=== PATIENT | female | born 1995 | race American Indian/Alaskan Native ===

== ENCOUNTER 2018-06-16 10:30 | Emergency (ER) | payer OTHER ==
[2018-06-16 10:43] VITALS: BP 113/67
--- NOTE | 2018-06-16 11:31 | Emergency Department Report ---
Chief Complaint: Dental/Oral Stated Complaint: TOOTHACHE/INFECTION Time Seen by Provider: 06/16/18 11:31 - HPI History of Present Illness: abc intact no abscess or ludwigs MSE COMPLETED - Exam Vital Signs: Vital Signs 06/16/18 10:42 Temperature 98.2 F Pulse Rate 87 Respiratory 18 Rate Blood Pressure 113/67 O2 Sat by Pulse 98 Oximetry MSE screening note: Focused history and physical exam performed. Due to findings the following was ordered: ED Disposition for MSE Condition: Stable
[2018-06-16] MEDS ORDERED: TYLENOL #3 PO ONE (12:09)
--- NOTE | 2018-06-16 12:14 | Emergency Department Report ---
ED ENT HPI - General Chief complaint: Dental/Oral Stated complaint: TOOTHACHE/INFECTION Time Seen by Provider: 06/16/18 11:31 Source: patient Mode of arrival: Ambulatory Limitations: No Limitations - History of Present Illness Initial comments: This is a 22-year-old female nontoxic, well nourished in appearance, no acute signs of distress presents to the ED with c/o of right lower toothache 3 weeks. Patient denies following up with a dentist. Patient stated that pain radiates from his job to his right side of head. Patient otherwise denies any head trauma. Patient describes toothache as aching level of 8 out of 10. Patient denies any facial swelling. Patient denies any numbness, tingling, fever, chills, headache, stiff neck, abdominal pain, chest pain, shortness of breath. Patient denies any drug allergies or significant past medical history. MD complaint: tooth pain -: week(s) (3) Location: tooth # 1 - pain here Severity: mild Severity scale (0 -10): 8 Quality: aching Consistency: constant Improves with: none Worsens with: none Associated Symptoms: gum swelling, toothache. denies: fever, cough, pain with swallowing, sore throat, tinnitus, hearing loss, discharge from ear, rhinorrhea - Related Data Previous Rx's Medication Instructions Recorded Last Taken Type ALBUTEROL Inhaler(NF) [VENTOLIN 2 puff IH Q4-6H PRN #1 inha 01/23/18 Unknown Rx Inhaler(NF)] Azithromycin [Zithromax Z-MALIK] 250 mg PO DAILY #6 tablet 01/23/18 Unknown Rx Prednisone [predniSONE 10 mg 10 mg PO .TAPER #1 tab.ds.pk 01/23/18 Unknown Rx (6-Day Pack, 21 Tabs)] Acetaminophen/Codeine [Tylenol 1 tab PO Q6H PRN #12 tab 06/16/18 Unknown Rx /Codeine # 3 tab] Chlorhexidine Mouthwash [Peridex] 15 ml MM BID #1 bottle 06/16/18 Unknown Rx Clindamycin [Clindamycin CAP] 300 mg PO Q8H #21 cap 06/16/18 Unknown Rx Ibuprofen [Motrin] 600 mg PO Q8H PRN #20 tablet 06/16/18 Unknown Rx Allergies Allergy/AdvReac Type Severity Reaction Status Date / Time No Known Allergies Allergy Unverified 01/23/18 06:04 ED Dental HPI - General Chief complaint: Dental/Oral Stated complaint: TOOTHACHE/INFECTION Time Seen by Provider: 06/16/18 11:31 Source: patient Mode of arrival: Ambulatory Limitations: No Limitations - Related Data Previous Rx's Medication Instructions Recorded Last Taken Type ALBUTEROL Inhaler(NF) [VENTOLIN 2 puff IH Q4-6H PRN #1 inha 01/23/18 Unknown Rx Inhaler(NF)] Azithromycin [Zithromax Z-MALIK] 250 mg PO DAILY #6 tablet 01/23/18 Unknown Rx Prednisone [predniSONE 10 mg 10 mg PO .TAPER #1 tab.ds.pk 01/23/18 Unknown Rx (6-Day Pack, 21 Tabs)] Acetaminophen/Codeine [Tylenol 1 tab PO Q6H PRN #12 tab 06/16/18 Unknown Rx /Codeine # 3 tab] Chlorhexidine Mouthwash [Peridex] 15 ml MM BID #1 bottle 06/16/18 Unknown Rx Clindamycin [Clindamycin CAP] 300 mg PO Q8H #21 cap 06/16/18 Unknown Rx Ibuprofen [Motrin] 600 mg PO Q8H PRN #20 tablet 06/16/18 Unknown Rx Allergies Allergy/AdvReac Type Severity Reaction Status Date / Time No Known Allergies Allergy Unverified 01/23/18 06:04 ED Review of Systems ROS: Stated complaint: TOOTHACHE/INFECTION Other details as noted in HPI Constitutional: denies: chills, fever Eyes: denies: eye pain, eye discharge, vision change ENT: dental pain. denies: ear pain, throat pain Respiratory: denies: cough, shortness of breath, wheezing Cardiovascular: denies: chest pain, palpitations Endocrine: no symptoms reported Gastrointestinal: denies: abdominal pain, nausea, diarrhea Genitourinary: denies: urgency, dysuria, discharge Musculoskeletal: denies: back pain, joint swelling, arthralgia Skin: denies: rash, lesions Neurological: denies: headache, weakness, paresthesias Psychiatric: denies: anxiety, depression Hematological/Lymphatic: denies: easy bleeding, easy bruising ED Past Medical Hx - Past Medical History Previous Medical History?: No - Surgical History Past Surgical History?: No - Social History Smoking Status: Never Smoker Substance Use Type: None - Medications Home Medications: Home Medications Medication Instructions Recorded Confirmed Last Taken Type ALBUTEROL Inhaler(NF) [VENTOLIN 2 puff IH Q4-6H PRN #1 inha 01/23/18 Unknown Rx Inhaler(NF)] Azithromycin [Zithromax Z-MALIK] 250 mg PO DAILY #6 tablet 01/23/18 Unknown Rx Prednisone [predniSONE 10 mg 10 mg PO .TAPER #1 tab.ds.pk 01/23/18 Unknown Rx (6-Day Pack, 21 Tabs)] Acetaminophen/Codeine [Tylenol 1 tab PO Q6H PRN #12 tab 06/16/18 Unknown Rx /Codeine # 3 tab] Chlorhexidine Mouthwash [Peridex] 15 ml MM BID #1 bottle 06/16/18 Unknown Rx Clindamycin [Clindamycin CAP] 300 mg PO Q8H #21 cap 06/16/18 Unknown Rx Ibuprofen [Motrin] 600 mg PO Q8H PRN #20 tablet 06/16/18 Unknown Rx ED Physical Exam - General Limitations: No Limitations General appearance: alert, in no apparent distress - Head Head exam: Present: atraumatic, normocephalic - Expanded ENT Exam Expanded Ear exam: Present: normal external inspection Mouth exam: Present: normal external inspection. Absent: drooling, trismus, muffled voice Teeth exam: Present: dental caries, fractured tooth #, dental tenderness #, gingival enlargement, other (no facial swelling) Throat exam: Positive: normal inspection, other (uvula midline.). Negative: tonsillar erythema, tonsillomegaly, tonsillar exudate, R peritonsillar mass, L peritonsillar mass - Neck Neck exam: Present: normal inspection, full ROM. Absent: tenderness, meningismus, lymphadenopathy - Extremities Exam Extremities exam: Present: normal inspection, full ROM - Back Exam Back exam: Present: normal inspection, full ROM - Neurological Exam Neurological exam: Present: alert, oriented X3 - Psychiatric Psychiatric exam: Present: normal affect, normal mood - Skin Skin exam: Present: warm, dry, intact, normal color. Absent: rash ED Course Vital Signs 06/16/18 10:42 Temperature 98.2 F Pulse Rate 87 Respiratory 18 Rate Blood Pressure 113/67 O2 Sat by Pulse 98 Oximetry - Reevaluation(s) Reevaluation #1: 06/16/18 12:11 Patient is speaking in full sentences with no signs of distress noted. ED Medical Decision Making - Medical Decision Making This is a 22-year-old female that presents with gingivitis and dental caries. Patient is stable and was examined by me. Ophelia nashvd Tylnoel #3 and stated her male friend that is next to patient will drive the patient home after discharge. Patient is discharged with Tylenol #3, Peridex and Clinda. Patient was instructed not to operate any machinery when taking Tylenol #3 due to drowsiness. At time of discharge, the patient does not seem toxic or ill in appearance. No acute signs of distress noted. Patient agrees to discharge treatment plan of care. No further questions noted by the patient. Critical care attestation.: If time is entered above; I have spent that time in minutes in the direct care of this critically ill patient, excluding procedure time. ED Disposition Clinical Impression: Dental caries, Gingivitis Disposition: DC-01 TO HOME OR SELFCARE Is pt being admited?: No Does the pt Need Aspirin: No Condition: Stable Instructions: Dental Caries (ED), Gingivitis (ED), Acetaminophen/Codeine (By mouth) Additional Instructions: Follow-up with a dentist doctor in 3-5 days or if symptoms worsen and continue return to emergency room as soon as possible. Do not operate any machinery while taking Tylenol with codeine as this may cause drowsiness. Prescriptions: Clindamycin [Clindamycin CAP] 300 mg PO Q8H #21 cap Ibuprofen [Motrin] 600 mg PO Q8H PRN #20 tablet PRN Reason: Pain Chlorhexidine Mouthwash [Peridex] 15 ml MM BID #1 bottle Acetaminophen/Codeine [Tylenol /Codeine # 3 tab] 1 tab PO Q6H PRN #12 tab PRN Reason: Pain , Severe (7-10) Referrals: ROHAN MAYNARD [Other] - 3-5 Days PRIMARY CARE, [Referring] - 3-5 Days SHIMA PÉREZ MD [Staff Physician] - 3-[address] [facility] [Outside] - 3-5 Days Forms: Work/School Release Form(ED)
== END 2018-06-16 12:24 | disposition home or self-care (01) ==
LOC: ED 10:30
DX: K06.8 Other specified disorders of gingiva and edentulous alveolar ridge (principal); K02.9 Dental caries, unspecified; K05.00 Acute gingivitis, plaque induced; Z79.899 Other long term (current) drug therapy
CPT/HCPCS: 99282

== ENCOUNTER 2018-07-28 13:37 | Emergency (ER) | payer OTHER ==
[2018-07-28 13:53] VITALS: BP 114/62
--- NOTE | 2018-07-28 13:58 | Emergency Department Report ---
ED ENT HPI - General Chief complaint: Dental/Oral Stated complaint: RT SIDE TOOTH PAIN/SWELLING Time Seen by Provider: 07/28/18 13:51 Source: patient Mode of arrival: Ambulatory Limitations: No Limitations - History of Present Illness MD complaint: tooth pain -: Sudden, month(s) (ONGOING ISSUES. TREATED HER IN MAY. HAS APPOINTMENT IN 2 DAYS . FALRED LAST NIGHT. ) Location: tooth # Severity: mild Consistency: constant Improves with: none Worsens with: none Associated Symptoms: toothache. denies: cough, gum swelling, tinnitus, hearing loss, discharge from ear, rhinorrhea - Related Data Previous Rx's Medication Instructions Recorded Last Taken Type ALBUTEROL Inhaler(NF) [VENTOLIN 2 puff IH Q4-6H PRN #1 inha 01/23/18 Unknown Rx Inhaler(NF)] Azithromycin [Zithromax Z-MALIK] 250 mg PO DAILY #6 tablet 01/23/18 Unknown Rx Prednisone [predniSONE 10 mg 10 mg PO .TAPER #1 tab.ds.pk 01/23/18 Unknown Rx (6-Day Pack, 21 Tabs)] Acetaminophen/Codeine [Tylenol 1 tab PO Q6H PRN #12 tab 06/16/18 Unknown Rx /Codeine # 3 tab] Chlorhexidine Mouthwash [Peridex] 15 ml MM BID #1 bottle 06/16/18 Unknown Rx Clindamycin [Clindamycin CAP] 300 mg PO Q8H #21 cap 06/16/18 Unknown Rx Ibuprofen [Motrin] 600 mg PO Q8H PRN #20 tablet 06/16/18 Unknown Rx Amoxicillin [Amoxicillin TAB] 875 mg PO BID #20 tablet 07/28/18 Unknown Rx Chlorhexidine Mouthwash [Peridex] 15 ml MM BID #473 bottle 07/28/18 Unknown Rx Ketorolac [Toradol] 10 mg PO Q6H PRN #15 tablet 07/28/18 Unknown Rx Lidocaine Viscous 2% 5 ml MM Q3H PRN #120 udc 07/28/18 Unknown Rx Allergies Allergy/AdvReac Type Severity Reaction Status Date / Time No Known Allergies Allergy Unverified 01/23/18 06:04 ED Dental HPI - General Chief complaint: Dental/Oral Stated complaint: RT SIDE TOOTH PAIN/SWELLING Time Seen by Provider: 07/28/18 13:51 Source: patient Mode of arrival: Ambulatory Limitations: No Limitations - Related Data Previous Rx's Medication Instructions Recorded Last Taken Type ALBUTEROL Inhaler(NF) [VENTOLIN 2 puff IH Q4-6H PRN #1 inha 01/23/18 Unknown Rx Inhaler(NF)] Azithromycin [Zithromax Z-MALIK] 250 mg PO DAILY #6 tablet 01/23/18 Unknown Rx Prednisone [predniSONE 10 mg 10 mg PO .TAPER #1 tab.ds.pk 01/23/18 Unknown Rx (6-Day Pack, 21 Tabs)] Acetaminophen/Codeine [Tylenol 1 tab PO Q6H PRN #12 tab 06/16/18 Unknown Rx /Codeine # 3 tab] Chlorhexidine Mouthwash [Peridex] 15 ml MM BID #1 bottle 06/16/18 Unknown Rx Clindamycin [Clindamycin CAP] 300 mg PO Q8H #21 cap 06/16/18 Unknown Rx Ibuprofen [Motrin] 600 mg PO Q8H PRN #20 tablet 06/16/18 Unknown Rx Amoxicillin [Amoxicillin TAB] 875 mg PO BID #20 tablet 07/28/18 Unknown Rx Chlorhexidine Mouthwash [Peridex] 15 ml MM BID #473 bottle 07/28/18 Unknown Rx Ketorolac [Toradol] 10 mg PO Q6H PRN #15 tablet 07/28/18 Unknown Rx Lidocaine Viscous 2% 5 ml MM Q3H PRN #120 udc 07/28/18 Unknown Rx Allergies Allergy/AdvReac Type Severity Reaction Status Date / Time No Known Allergies Allergy Unverified 01/23/18 06:04 ED Review of Systems ROS: Stated complaint: RT SIDE TOOTH PAIN/SWELLING Other details as noted in HPI Constitutional: denies: chills, fever Eyes: denies: eye pain, eye discharge, vision change ENT: dental pain. denies: ear pain, throat pain Respiratory: denies: cough, shortness of breath, wheezing Cardiovascular: denies: chest pain, palpitations Endocrine: no symptoms reported Gastrointestinal: denies: abdominal pain, nausea, diarrhea Genitourinary: denies: urgency, dysuria, discharge Musculoskeletal: denies: back pain, joint swelling, arthralgia Skin: denies: rash, lesions Neurological: denies: headache, weakness, paresthesias Psychiatric: denies: anxiety, depression Hematological/Lymphatic: denies: easy bleeding, easy bruising ED Past Medical Hx - Past Medical History Previous Medical History?: No - Surgical History Past Surgical History?: No - Social History Smoking Status: Never Smoker Substance Use Type: None - Medications Home Medications: Home Medications Medication Instructions Recorded Confirmed Last Taken Type ALBUTEROL Inhaler(NF) [VENTOLIN 2 puff IH Q4-6H PRN #1 inha 01/23/18 Unknown Rx Inhaler(NF)] Azithromycin [Zithromax Z-MALIK] 250 mg PO DAILY #6 tablet 01/23/18 Unknown Rx Prednisone [predniSONE 10 mg 10 mg PO .TAPER #1 tab.ds.pk 01/23/18 Unknown Rx (6-Day Pack, 21 Tabs)] Acetaminophen/Codeine [Tylenol 1 tab PO Q6H PRN #12 tab 06/16/18 Unknown Rx /Codeine # 3 tab] Chlorhexidine Mouthwash [Peridex] 15 ml MM BID #1 bottle 06/16/18 Unknown Rx Clindamycin [Clindamycin CAP] 300 mg PO Q8H #21 cap 06/16/18 Unknown Rx Ibuprofen [Motrin] 600 mg PO Q8H PRN #20 tablet 06/16/18 Unknown Rx Amoxicillin [Amoxicillin TAB] 875 mg PO BID #20 tablet 07/28/18 Unknown Rx Chlorhexidine Mouthwash [Peridex] 15 ml MM BID #473 bottle 07/28/18 Unknown Rx Ketorolac [Toradol] 10 mg PO Q6H PRN #15 tablet 07/28/18 Unknown Rx Lidocaine Viscous 2% 5 ml MM Q3H PRN #120 udc 07/28/18 Unknown Rx ED Physical Exam - General Limitations: No Limitations General appearance: alert, in no apparent distress - Head Head exam: Present: atraumatic, normocephalic - Eye Eye exam: Present: normal appearance, PERRL, EOMI Pupils: Present: normal accommodation - ENT ENT exam: Present: normal orophraynx, mucous membranes moist, TM's normal bilaterally, other (DETNAL CARIES WITH ERYTHEMA) - Neck Neck exam: Present: normal inspection, tenderness - Respiratory Respiratory exam: Present: normal lung sounds bilaterally. Absent: respiratory distress, wheezes, rales, rhonchi, chest wall tenderness, accessory muscle use - Cardiovascular Cardiovascular Exam: Present: regular rate, normal rhythm. Absent: systolic murmur, diastolic murmur, rubs, gallop - GI/Abdominal GI/Abdominal exam: Present: soft, normal bowel sounds - Extremities Exam Extremities exam: Present: normal inspection - Back Exam Back exam: Present: normal inspection - Neurological Exam Neurological exam: Present: alert, oriented X3 - Psychiatric Psychiatric exam: Present: normal affect, normal mood - Skin Skin exam: Present: warm, dry, intact, normal color. Absent: rash ED Course Vital Signs 07/28/18 13:51 Temperature 98.2 F Pulse Rate 100 H Respiratory 16 Rate Blood Pressure 114/62 O2 Sat by Pulse 100 Oximetry Critical care attestation.: If time is entered above; I have spent that time in minutes in the direct care of this critically ill patient, excluding procedure time. ED Disposition Clinical Impression: Dentalgia Disposition: TO HOME OR SELFCARE Is pt being admited?: No Does the pt Need Aspirin: No Condition: Stable Instructions: Toothache (ED), Dental Caries (ED) Prescriptions: Amoxicillin [Amoxicillin TAB] 875 mg PO BID #20 tablet Lidocaine Viscous 2% 5 ml MM Q3H PRN #120 udc PRN Reason: Pain, Moderate (4-6) Chlorhexidine Mouthwash [Peridex] 15 ml MM BID #473 bottle Ketorolac [Toradol] 10 mg PO Q6H PRN #15 tablet PRN Reason: Pain Referrals: PRIMARY CARE, [Referring] - 07/30/18 (KEEP YOUR APPOINTMENT THIS SUNDAY)
== END 2018-07-28 14:28 | disposition home or self-care (01) ==
LOC: ED 13:37
DX: K08.89 Other specified disorders of teeth and supporting structures (principal)
CPT/HCPCS: 99282